=== PATIENT | male | born 1990 | race Two or more races ===

== ENCOUNTER 2016-11-27 00:15 | Emergency (ER) | payer BC ==
[~2016-11-27] VITALS: Ht 180.3 cm; Wt 108.5 kg
[~2016-11-27 00:15] MED LIST: CYCL-319 PO; HYDR-906 PO; NAPR-260 PO
[2016-11-27 00:46] VITALS: Ht 180.3 cm; Wt 108.5 kg
[2016-11-27] MEDS ORDERED: ONDANSETRON (ODT) 4 MG TAB ODT STA (01:12)
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
[2016-11-27] MEDS ORDERED: AMOX1TAB10 PO (02:21)
[2016-11-27] MEDS ORDERED: ONDA4TAB14 PO (02:21)
[2016-11-27] MEDS ORDERED: ACET500C5 PO (02:21)
[2016-11-27] MEDS ORDERED: TRAM50TA2 PO (02:21)
[2016-11-27] MEDS ORDERED: traMADol 50 MG TAB PO ONE (03:00)
[2016-11-27 03:08] VITALS: BP 137/91; PULSE 56; RESP 18
== END 2016-11-27 02:53 | disposition home or self-care (01) ==
LOC: FTE 00:15
DX: S02.2XXA Fracture of nasal bones, initial encounter for closed fracture (principal); S00.83XA Contusion of other part of head, initial encounter; R11.10 Vomiting, unspecified; Y04.8XXA Assault by other bodily force, initial encounter
CPT/HCPCS: 70450; 70486; Z7502; Z7610

== ENCOUNTER 2018-10-15 11:45 | Emergency (ER) | payer BC ==
[~2018-10-15] VITALS: Wt 101.4 kg
[~2018-10-15 11:45] MED LIST changes: +ACET500C5 PO; +AMOX1TAB10 PO; -CYCL-319 PO; +CYCL10TA7 PO; +HYDR-4011 PO; -HYDR-906 PO; -NAPR-260 PO; +NAPR-985 PO; +ONDA4TAB14 PO; +TRAM50TA2 PO
--- NOTE | 2018-10-15 13:56 | ERD ---
ER Documentation Chief Complaint Chief Complaint r. ankle pain s/p trauma last night HPI 28-year-old male presenting with right ankle pain. Patient was playing basketball and twisted his ankle last night. Took Vicodin earlier today. Denies any numbness or tingling. Has mild swelling. Denies medical problems. NKDA. Surgical history denies. Social history denies ROS All systems reviewed and are negative except as per history of present illness. Medications Home Meds Active Scripts Naproxen* (Naprosyn*) 500 Mg Tablet, 500 MG PO BID PRN for PAIN AND/OR INFLAMMATION, #30 TAB Prov:MONTANA DOMÍNGUEZ PA-C 10/15/18 Ondansetron (Ondansetron Odt) 4 Mg Tab.rapdis, 4 MG PO Q8 PRN for NAUSEA AND/OR VOMITING, #30 TAB Prov:JOSELIN ROBBINS NP 11/27/16 Amoxicillin/Potassium Clav (Amox-Clav 875-125 mg Tablet) 875-125 mg Tab, 1 TAB PO BID for 7 Days, #14 TAB Prov:JOSELIN ROBBINS NP 11/27/16 Tramadol HCl (Tramadol HCl) 50 Mg Tablet, 50 MG PO Q6 for SEVERE PAIN LEVEL 7- 10, #20 TAB Prov:JOSELIN ROBBINS NP 11/27/16 Acetaminophen* (Tylophen*) 500 Mg Capsule, 1 CAP PO Q6H PRN for PAIN AND OR ELEVATED TEMP, #20 CAP Prov:JOSELIN ROBBINS NP 11/27/16 Cyclobenzaprine Hcl* (Cyclobenzaprine Hcl*) 10 Mg Tablet, 10 MG PO TID, #15 TAB Prov:MONTANA DOMÍNGUEZ PA-C 11/18/15 Naproxen* (Naprosyn*) 500 Mg Tablet, 500 MG PO BID PRN for PAIN AND/OR INFLAMMATION, #30 TAB Prov:MONTANA DOMÍNGUEZ PA-C 11/18/15 Hydrocodone/Acetaminophen ([place] 5-325 Tablet) 1 Each Tablet, 1 EACH PO QHS, #10 TAB Prov:MONTANA DOMÍNGUEZ PA-C 11/18/15 Allergies Allergies: Coded Allergies: No Known Allergies (Verified Allergy, Mild, 07/10/10) PMhx/Soc History of Surgery: No Anesthesia Reaction: No Hx Neurological Disorder: No Hx Respiratory Disorders: No Hx Cardiac Disorders: No Hx Psychiatric Problems: No Hx Miscellaneous Medical Probl: No Hx Alcohol Use: No Hx Substance Use: No Hx Tobacco Use: No FmHx Family History: No diabetes, No coronary disease, No other Physical Exam Vitals Vital Signs Date Temp Pulse Resp B/P (MAP) Pulse Ox O2 O2 Flow FiO2 Time Delivery Rate 10/15/18 97.9 64 20 121/71 99 11:50 (88) Physical Exam GENERAL: The patient is well-appearing, well-nourished, in no acute distress CHEST: Clear to auscultation bilaterally. There are no rales, wheezes or rhonchi. HEART: Regular rate and rhythm. No murmurs, clicks, rubs or gallops. EXTREMITIES: Soft tissue swelling noted to the right ankle. Mild tenderness palpation over the lateral malleolus. Questionable tenderness to the base of the fifth metatarsal. No laxity. Normal flexion-extension and strength 5 out of 5. NEUROLOGIC: Alert and oriented. Cranial nerves II through XII intact. Motor strength in all 4 extremities with 5 out of 5 strength. Sensation grossly intact. SKIN: There is no apparent rash or petechiae. The skin is warm and dry. Procedures/MDM DIAGNOSTIC IMAGING REPORT Patient: PATRICIO BOURNE : 1990 Age: 28 Sex: M MR #: [id number] DOS: 10/15/18 1254 Ordering MD: HENRIQUE DOMÍNGUEZ PA-C Location: [facility] Room/Bed: AMENDMENT: 10/15/2018 1:44:31 PM Alix Courtney M.d Note that there is a small old avulsion fracture lateral to the fifth tarsometatarsal joint with mild osseous spurring within the adjacent distal cuboid. PROCEDURE: XR Right Ankle and XR Right Foot. CLINICAL INDICATION: Twisting injury TECHNIQUE: 3 views of the right ankle and 3 views of the right foot COMPARISON: None. FINDINGS: Ankle: There is no acute fracture or dislocation. Ankle mortise is intact. Joint spaces are maintained. There is a small enthesophyte within the posterior calcaneus at the Achilles tendon insertion. There is mild soft tissue swelling around the ankle. Foot: There is no acute fracture or dislocation. The joint spaces are maintained. The tarsometatarsal joints are intact. An accessory navicular is present. Mild soft tissue swelling around the foot is present. RPTAT: ZZ IMPRESSION: 1. No acute bony abnormality. 2. Mild soft tissue swelling around the foot and ankle. 3. Achilles enthesopathy. DIAGNOSTIC IMAGING REPORT Patient: PATRICIO BOURNE : 1990 Age: 28 Sex: M MR #: [id number] DOS: 10/15/18 1254 Ordering MD: HENRIQUE DOMÍNGUEZ PA-C Location: [facility] Room/Bed: PROCEDURE: XR Right Ankle and XR Right Foot. CLINICAL INDICATION: Twisting injury TECHNIQUE: 3 views of the right ankle and 3 views of the right foot COMPARISON: None. FINDINGS: Ankle: There is no acute fracture or dislocation. Ankle mortise is intact. Joint spaces are maintained. There is a small enthesophyte within the posterior calcaneus at the Achilles tendon insertion. There is mild soft tissue swelling around the ankle. Foot: There is no acute fracture or dislocation. There is a small old avulsion fracture lateral to the fifth tarsometatarsal joint measuring about 2 mm with mild osseous spurring within the distal lateral cuboid. The joint spaces are maintained. The tarsometatarsal joints are intact. An accessory navicular is present. Mild soft tissue swelling around the foot is present. RPTAT: ZZ IMPRESSION: 1. No acute bony abnormality. 2. Small old avulsion fracture lateral to the fifth tarsometatarsal joint with mild osseous spurring within the adjacent distal cuboid. 3. Mild soft tissue swelling around the foot and ankle. 4. Achilles enthesopathy. MDM: 28-year-old male presenting with pain to the ankle. I have low suspicion for acute fracture dislocation. A low suspicion for tendon or ligament rupture. Patient sustained sprain and has swelling secondary to sprain injury. For neuro deficit. Patient is discharged with strict ER precautions and told to follow-up with primary care within 1 to 2 days for close evaluation. Patient is told symptoms change or worsen to return immediately to the ER. All questions answered at discharge Departure Diagnosis: Primary Impression: Ankle injury Condition: Stable Patient Instructions: Treating Ankle Sprains Referrals: [facility] YOU HAVE RECEIVED A MEDICAL SCREENING EXAM AND THE RESULTS INDICATE THAT YOU DO NOT HAVE A CONDITION THAT REQUIRES URGENT TREATMENT IN THE EMERGENCY DEPARTMENT. FURTHER EVALUATION AND TREATMENT OF YOUR CONDITION CAN WAIT UNTIL YOU ARE SEEN IN YOUR DOCTORS OFFICE WITHIN THE NEXT 1-2 DAYS. IT IS YOUR RESPONSIBILITY TO MAKE AN APPOINTMENT FOR FOLOW-UP CARE. IF YOU HAVE A PRIMARY DOCTOR --you should call your primary doctor and schedule an appointment IF YOU DO NOT HAVE A PRIMARY DOCTOR YOU CAN CALL OUR PHYSICIAN REFERRAL HOTLINE AT IF YOU CAN NOT AFFORD TO SEE A PHYSICIAN YOU CAN CHOSE FROM THE FOLLOWING [facility] [address] [facility]. [facility] [address] [facility] [facility] [address] [facility]. [facility] [address] [facility]. [facility] [address] [facility]. [facility] [address] Additional Instructions: FOLLOW UP WITH YOUR PRIMARY CARE PHYSICIAN TOMORROW.Return to this facility if you are not improving as expected. MONTANA DOMÍNGUEZ PA-C Oct 15, 2018 13:56
[2018-10-15 14:22] VITALS: BP 119/74; PULSE 66; RESP 20
== END 2018-10-15 14:24 | disposition home or self-care (01) ==
LOC: FTE 11:45
DX: S99.911A Unspecified injury of right ankle, initial encounter (principal); X50.1XXA Overexertion from prolonged static or awkward postures, initial encounter; Y92.9 Unspecified place or not applicable
CPT/HCPCS: 73630